=== PATIENT | female | born 1975 | race Hispanic/Latino ===

== ENCOUNTER → 2018-04-11 | Day surgery (SDC) | payer OTHER ==
[2018-04-08 15:51] LABS: BASOPHILS % 0.3 % (0.0-1.0); EOSINOPHILS % 0.4 % (0.0-6.0); HEMATOCRIT 39.8 % (34.2-44.1); HEMOGLOBIN 13.5 g/dL (12.0-16.0); LYMPHOCYTES % 31.7 % (18.0-39.1); MEAN CORPUSCULAR HEMOGLOBIN 32.1 pg (28-32); MEAN CORPUSCULAR HGB CONC 33.9 g/dL (31-35); MEAN CORPUSCULAR VOLUME 94.8 fL (81-99); MONOCYTES # (AUTO) 0.4 (0.2-0.8); MONOCYTES % 4.4 % (4.4-11.3); NEUTROPHILS % 62.9 % (38.7-80.0); PLATELET COUNT 367 x10e3/uL (140-360); RED CELL DISTRIBUTION WIDTH 12.1 % (11.7-14.4)
[2018-04-08 16:07] LABS: ANION GAP 14.2 mmol/L (8-16); BLOOD UREA NITROGEN 8 mg/dL (7-26); BUN/CREATININE RATIO 11 (6-25); CALCIUM 8.5 mg/dL (8.4-10.2); CARBON DIOXIDE 23 mmol/L (22-29); CHLORIDE 105 mmol/L (98-107); CREATININE, SERUM 0.76 mg/dL (0.57-1.11); EST GLOMERULAR FILTRATION RATE > 60 ML/MIN (60-); GLUCOSE 150 mg/dL (74-118); POTASSIUM 4.2 mmol/L (3.5-5.1); SODIUM 138 mmol/L (136-145)
--- NOTE | 2018-04-08 16:11 | Diagnostic Imaging Report ---
EXAMINATION: PA and lateral views of the chest. COMPARISON: None CLINICAL HISTORY: Preop DISCUSSION: Lines/tubes: None. Lungs: The lungs are well inflated and clear. There is no evidence of pneumonia or pulmonary edema. Pleura: There is no pleural effusion or pneumothorax. Heart and mediastinum: Cardiomediastinal silhouette is unremarkable. Pulmonary vasculature is normal. Bones and soft tissues: No acute bony abnormalities. IMPRESSION: No acute cardiopulmonary abnormalities. Signed by: Dr. Kenney Iniguez M.D. on 04/08/2018 4:08 PM
[~2018-04-11] MED LIST: BLISOVI FE PO; BUPIVACAINE HCL 0.5% 10ML MPF VIAL INJ ONE; DEXAMETHASONE SOD PHOS INJ 4 MG/ML VIAL ONE; FENTANYL CITRATE/PF 100MCG/2 ML INJ ONE; KETOROLAC TROMETHAMINE 30 MG/ML VIAL ONE; LIDOCAINE HCL 2% LOCAL INJ 5 ML SDV VIAL INJ ONE; MIDAZOLAM HCL 2 MG/2 ML VIAL ONE; MORPHINE SULFATE 2 MG/ML SYR ONE; NO KNOWN MEDICATIONS; ONDANSETRON HCL INJ 2 MG/ML VIAL ONE; PROPOFOL IV EMULSION 10 MG/ML 20 ML VIAL ONE; SEVOFLURANE INHAL SOLN 250 ML PEN BTL ONE
--- OUTSIDE RECORDS SUMMARY | 2018-04-11 06:30 | XMS REPORT ---
[facility] Address Unknown Phone Unavailable Care Team Providers Care Sales Floor Manager Name Role Phone BONNIE FRANKLIN Unavailable Unavailable Problems This patient has no known problems. Allergies, Adverse Reactions, Alerts This patient has no known allergies or adverse reactions. Medications This patient has no known medications. Results Test Description Test Time Test Comments Text Results Atomic Results Result Comments CHEST 2 VIEWS 2018-04-08 16:08:00 [place] [address] Patient Name: YVAN LANGE MR #: [id number] : 1975 Age/Sex: 43/F Req #: [id number] Adm Physician: Ordered by: BONNIE FRANKLIN DPM Report #: [id number] Location: OR Room/Bed: Procedure: [id number] DX/CHEST 2 VIEWS Exam Date: Exam Time: REPORT STATUS: Signed EXAMINATION: PA and lateral views of the chest. COMPARISON: None CLINICAL HISTORY: Preop DISCUSSION: Lines/tubes: None. Lungs: The lungs are well inflated and clear. There is no evidence of pneumonia or pulmonary edema. Pleura: There is no pleural effusion or pneumothorax. Heart and mediastinum: Cardiomediastinal silhouette is unremarkable. Pulmonary vasculature is normal. Bones and soft tissues: No acute bony abnormalities. IMPRESSION: No acute cardiopulmonary abnormalities. Signed by: Dr. Nini Iniguez M.D. on 04/08/2018 4:08 PM Dictated By: NINI INIGUEZ MD [id number] Transcribed By: ELYSIA on 04/08/18 1609 COPY TO: BONNIE FRANKLIN DPM
[2018-04-11 10:45] VITALS: BP 120/77
--- NOTE | 2018-04-14 19:37 | Operative Report ---
DATE OF PROCEDURE: April 11, 2018 PREOPERATIVE DIAGNOSIS: Hallux abductus deformity of the right foot. Tailor's bunion deformity of the right foot. POSTOPERATIVE DIAGNOSIS: Hallux abductus deformity of the right foot. Tailor's bunion deformity of the right foot. TITLE OF OPERATION: Modified Jarad bunionectomy of the right foot and a Tailor's bunionectomy of the right foot. ANESTHESIA: General endotracheal. HEMOSTASIS: Is a right thigh tourniquet at 350 mmHg for hemostasis. PROCEDURE IN DETAIL: The patient was taken to the operating room in a mildly sedated state and placed upon the operating table in the supine position. Following induction of general anesthetic, the right lower extremity was elevated 60 degrees to exsanguinate before inflating pneumatic thigh tourniquet to 350 mmHg for hemostasis. The right lower extremity was placed upon the operating table prior to performing the following procedure: Procedure number 1 is a modified Jarad bunionectomy of the right foot. An approximately 6 cm dorsal linear incision made overlying the dorsomedial aspect of the 1st metatarsophalangeal joint of the right foot. Incision was deepened via sharp and blunt dissection down to the level of dorsal capsular structure. Care was taken to identify and retract all vital structures encountered. Head of the 1st metatarsal was delivered into the surgical site and remodeled utilizing an oscillating saw. The conjoined tendon of the adductor hallucis muscle was identified and tenotomized. A [id number] osteotomy was placed at the apex distally and based proximally to allow for relative shift lateral-avila of the head of the more proximal segment. The conjoined tendon of the adductor hallucis muscle was identified and tenotomized. After compression, two dorsal screws were placed across the dorsal aspect of the osteotomy site. A further remodeling of the medial eminence was performed and the oscillating saw and rotary bur were used and the area was irrigated with copious amounts of sterile saline solution. Deep closure with 3-0 Vicryl. Subcutaneous closure 4-0 Vicryl and skin closure with 4-0 nylon. Attention was then directed to the lateral aspect of the foot for Tailor's bunionectomy of the right foot. An approximate 4 cm dorsolateral incision made overlying the dorsal lateral aspect of the 5th metatarsal of the right foot. Incision was deepened via sharp and blunt dissection down to the level of the dorsal capsular structure. Care was taken to identify and retract all vital structures encountered. Head of 1st metatarsal was identified and lateral aspect was remodeled utilizing oscillating saw and rotary bur. The area was irrigated with copious amounts of sterile saline solution. Deep closure with 3-0 Vicryl. Subcutaneous closure 4-0 nylon and skin closure with 4-0 nylon. The areas of surgery were all then blocked with 0.5 Marcaine and Decadron [place]. The appropriate mildly compressive dressings were applied. Released the pneumatic thigh tourniquet and showed a normal hyperemic flush to all digits of the right foot. Patient left the operating room with vital signs stable in apparent satisfactory condition, having tolerated both anesthetic and procedure very well. Job#: [id number] JACQUELINE
== END | disposition home or self-care (01) ==
LOC: OR 06:27
PROVIDERS: ATTEND Podiatrist Foot Surgery
DX: M20.11 Hallux valgus (acquired), right foot (principal); M21.621 Bunionette of right foot; Z01.810 Encounter for preprocedural cardiovascular examination; Z01.812 Encounter for preprocedural laboratory examination; Z01.818 Encounter for other preprocedural examination
CPT/HCPCS: 28110; 28296; 36415; 71046; 80048; 81025; 85025; 93005; C1713; J1100; J1885; J2001; J2250; J2270; J2405; J2704; 76001